=== PATIENT | male | born 1955 | race Caucasian/White ===

== ENCOUNTER 2022-07-29 10:16 | Emergency (ER) | payer BC ==
[~2022-07-29] VITALS: Ht 172.7 cm; Wt 81.2 kg
[2022-07-29] MEDS ORDERED: ZESTRIL10 M1 PO (10:30)
== END 2022-07-29 15:29 | disposition home or self-care (01) ==
LOC: ER 10:16
DX: J10.1 Influenza due to other identified influenza virus with other respiratory manifestations (principal); Z20.822 Contact with and (suspected) exposure to COVID-19